=== PATIENT | female | born 1975 | race Caucasian/White ===

== ENCOUNTER 2019-09-25 09:49 | Emergency (ER) | payer OTHER ==
[~2019-09-25] VITALS: Ht 165.1 cm; Wt 70.0 kg
--- NOTE | 2019-09-25 10:06 | NUR ---
C/O GENERALIZED ABD PAIN - "SEVERE STARTED WEDNESDAY". DENIES N/V, DIARRHEA, CONSTIPATION. WORSENS W/ "LOTS OF ACTIVITY". ALEVE FOR PAIN: LAST DOSE YESTERDAY. LAST BM: TODAY. LAST ORAL INTAKE: COFFEE THIS AM, FOOD LAST NOC. LMP: 09/12 C/O "LUMP" TO EPIGATRIC AREA - NOTICED IN JUNE - NO OFFICIAL HERNIA DX.
[2019-09-25] MEDS ORDERED: MULTIVITAMIN (10:12)
[2019-09-25] MEDS ORDERED: NAPR220T77 PO (10:15)
[2019-09-25] MEDS ORDERED: SODIUM CHLORIDE FLUSH 10ML SYR IVF ONE (10:30)
[2019-09-25] MEDS ORDERED: ONDANSETRON 2MG/ML, 2ML IVPush ONE (10:30)
[2019-09-25] MEDS ORDERED: MORPHINE SULFATE 4 MG/ML, 1ML IVPush PRN (10:30)
[2019-09-25] MEDS ORDERED: ONDANSETRON 2MG/ML, 2ML ONE (10:58)
[2019-09-25] MEDS ORDERED: MORPHINE SULFATE 4 MG/ML, 1ML ONE (10:59)
[2019-09-25 11:00] LABS: BASOPHILS % (AUTO) 0 % (0-1); EOSINOPHILS # (AUTO) 0.16 x10^3/uL (0-0.4); EOSINOPHILS % (AUTO) 2 % (1-7); LYMPHOCYTES # (AUTO) 0.66 x10^3/uL (1-3.4); LYMPHOCYTES % (AUTO) 9 % (22-44); MD NO; MEAN CORPUSCULAR HEMOGLOBIN 21.6 pg (27.0-34.8); MEAN CORPUSCULAR VOLUME 69.8 fL (80-100); MEAN PLATELET VOLUME 7.5 fL (7.4-10.4); MONOCYTES # (AUTO) 0.71 x10^3/uL (0.2-0.8); MONOCYTES % (AUTO) 10 % (2-9); NEUTROPHILS % (AUTO) 79 % (42-75); PLATELET COUNT 341 x10^3/uL (130-400); RED BLOOD COUNT 3.75 x10^6/uL (3.82-5.3); RED CELL DISTRIBUTION WIDTH 18.2 % (9.6-15.2)
[2019-09-25 11:01] LABS: MICROSCOPIC AUTO
--- NOTE | 2019-09-25 11:06 | NUR ---
ZOFRAN AND MORPHINE GIVEN. PT DEVELOPED ITCHINESS TO IV SITE POST-MORPHINE ADMINISTRATION. NO RESP DISTRESS. ERP WILL BE NOTIFIED.
[2019-09-25 11:08] LABS: ALANINE AMINOTRANSFERASE 27 U/L (12-78); ANION GAP 8 mmol/L (5-15); CALCIUM 8.3 mg/dL (8.5-10.1); CHLORIDE 108 mmol/L (98-107)
[2019-09-25] MEDS ORDERED: DIPHENHYDRAMINE 50 MG/ML, 1ML ONE (11:08)
--- NOTE | 2019-09-25 11:12 | NUR ---
BENADRYL GIVEN. PT LAUGHING W/ FRIEND. ITCHINESS RECEEDING
[2019-09-25 11:13] LABS: ALKALINE PHOSPHATASE 109 U/L (45-117); BILIRUBIN,TOTAL 0.6 mg/dL (0.2-1.0); TOTAL PROTEIN 6.8 g/dL (6.4-8.2)
[2019-09-25] MEDS ORDERED: OMNIPAQUE 350 MG/ML, 100ML BOTTLE ONE (11:52)
--- NOTE | 2019-09-25 12:19 | NUR ---
TO RADIOLOGY PER ADAM
--- NOTE | 2019-09-25 12:42 | NUR ---
PT RESTING QUIETLY ON GURNEY, AWAITING U/S. REPORTS IMPROVEMENT IN PAIN; NO ARM ITCHINESS. SIDE RAIL UP X1, CALL LIGHT W/IN REACH, FRIEND IN ROOM.
--- NOTE | 2019-09-25 12:50 | NUR ---
TO U/S PER ADAM
[2019-09-25 14:10] VITALS: BP 104/55
[2019-09-25] MEDS ORDERED: DIPHENHYDRAMINE 50 MG/ML, 1ML IVPush ONE (21:00)
== END 2019-09-25 14:21 | disposition home or self-care (01) ==
LOC: ED 10:43
DX: N83.02 Follicular cyst of left ovary (principal); R10.84 Generalized abdominal pain; R10.31 Right lower quadrant pain; R10.32 Left lower quadrant pain; Z98.51 Tubal ligation status
CPT/HCPCS: 36415; 71046; 74177; 76830; 80053; 81001; 83690; 84703; 85025; 86304; 96374; 96375; 99285; J1200; J2270; J2405; Q9967